=== PATIENT | female | born 1965 | race Caucasian/White ===

== ENCOUNTER 2020-06-30 11:48 | Emergency (ER) | payer BC ==
[~2020-06-30] VITALS: Ht 160 cm; Wt 70.5 kg
[~2020-06-30 11:48] MED LIST: LISI-232 PO; ZOLP10TA5 PO
[2020-06-30 12:04] VITALS: BP 178/115
== END 2020-06-30 12:28 | disposition home or self-care (01) ==
LOC: ER 11:49
DX: U07.1 COVID-19 (principal); R09.81 Nasal congestion; I10 Essential (primary) hypertension; Z79.899 Other long term (current) drug therapy
CPT/HCPCS: 99282

== ENCOUNTER 2023-06-16 05:16 | Day surgery (SDC) | payer BC ==
[2023-06-13 14:36] LABS: BASOPHILS # (AUTO) 0.1 X10'3 (0-0.2); BASOPHILS % (AUTO) 0.8 % (0-1); EOSINOPHILS # (AUTO) 0.1 X10'3 (0-0.9); EOSINOPHILS % (AUTO) 1.8 % (0-6); LYMPHOCYTES # (AUTO) 2.9 X10'3 (1.1-4.8); LYMPHOCYTES % (AUTO) 40.3 % (21-51); MEAN CORPUSCULAR HEMOGLOBIN 30.2 PG (27.0-31.0); MEAN CORPUSCULAR VOLUME 91.6 FL (78-98); MEAN PLATELET VOLUME 9.4 FL (7.4-10.4); MONOCYTES # (AUTO) 0.6 X10'3 (0-0.9); MONOCYTES % (AUTO) 7.7 % (2-12); NEUTROPHILS # (AUTO) 3.6 X10'3 (1.8-7.7); NEUTROPHILS % (AUTO) 49.4 % (42-75); PRE OP HEMATOCRIT 45.7 % (35.0-45.0); PRE OP HEMOGLOBIN 15.1 g/dL (12.0-16.0); PRE OP PLATELET COUNT 243 X10'3 (140-440); PRE OP WHITE BLOOD COUNT 7.2 10'3 (4.8-10.8); RED BLOOD COUNT 4.99 X10'6 (4.20-5.60); RED CELL DISTRIBUTION WIDTH 12.9 % (11.5-14.5)
[2023-06-13 14:46] LABS: ALBUMIN 3.8 G/DL (3.4-5.0); ALBUMIN/GLOBULIN RATIO 1.1 (1.1-1.5); ALKALINE PHOSPHATASE 90 IU/L (46-116); BLOOD UREA NITROGEN 13 MG/DL (7-18); BUN/CREATININE RATIO 16.3 (10.0-20.0); CALCIUM 9.1 MG/DL (8.5-10.1); CHLORIDE 106 MMOL/L (99-107); PRE OP ALT 40 U/L (30-65); PRE OP ANION GAP 10 (8-16); PRE OP AST 25 U/L (10-37); PRE OP BILIRUB, TOTAL 0.4 MG/DL (0.0-1.0); PRE OP GLUCOSE 84 MG/DL (70-104); PRE OP POTASSIUM 3.9 MMOL/L (3.4-5.1); PRE OP SODIUM 146 MMOL/L (135-145); TOTAL CARBON DIOXIDE 30.2 MMOL/L (24-32); TOTAL PROTEIN 7.3 G/DL (6.4-8.2); eGFR 74 ML/MIN
[2023-06-16] VITALS (28 sets, daily range): BP systolic 73–141; BP diastolic 41–89; PULSE 57–73; RESP 12–19; TEMP 97.5; O2SAT 93–99
[~2023-06-16] VITALS: Ht 160 cm; Wt 74.1 kg
[~2023-06-16 05:16] MED LIST changes: +MAGNESIUM; +VIT C; +ZINC; +[UNRECOGNIZED DRUG - OTHER]
[2023-06-16] MEDS: cefazolin 2gm/D5W 100mL 100 ML IV ONE (05:30)
[2023-06-16] MEDS: famotidine 20mg tablet PO ONE (06:37)
[2023-06-16] MEDS: ringers solution, lacted 1,000 ML IV SCH (06:37)
[2023-06-16] MEDS ORDERED: LIDOcaine 1% (10mg/ml)w/preservative inj. 20ml MDV ONE (06:42)
[2023-06-16] MEDS ORDERED: methylene blue (5mg/ml) 50mg/10ml ampul IV ONE (06:42)
[2023-06-16] MEDS ORDERED: BUPIVAcaine/PF 2.5mg/ml (0.25%) 10ml vial ONE (06:42)
[2023-06-16] MEDS ORDERED: BUPIVACAINE liposomal/PF 13.3 MG/ML vial IM ONE (07:03)
[2023-06-16] MEDS ORDERED: midazolam 1 mg/ML 2ml injection ONE (07:24)
[2023-06-16] MEDS ORDERED: fentaNYL/PF 50MCG/1 ML 2ML syringe ONE (07:24)
[2023-06-16] MEDS ORDERED: dexamethasone sod phosphate 4mg/ml inj. ONE (07:25)
[2023-06-16] MEDS ORDERED: LIDOcaine 2% (20mg/ml) 5ml vial ONE (07:25)
[2023-06-16] MEDS ORDERED: acetaminophen 1,000mg/100ml IV 100 ML IV ONE (07:25)
[2023-06-16] MEDS ORDERED: ondansetron/PF 4mg/2ml inj ONE (07:25)
[2023-06-16] MEDS ORDERED: propofol inj 20 ML IV ONE (07:25)
[2023-06-16] MEDS ORDERED: labetalol 20mg/4ml (5mg/ml) syringe IV PRN (07:30)
[2023-06-16] MEDS ORDERED: hydrALAZINE 20mg/ml inj. IV PRN (07:30)
[2023-06-16] MEDS ORDERED: ringers solution, lacted 1,000 ML IV SCH (07:30)
[2023-06-16] MEDS ORDERED: fentaNYL/PF 50MCG/1 ML 2ML syringe IV PRN (07:30)
[2023-06-16] MEDS ORDERED: morphine 2 MG/ML inj. syringe IV PRN (07:30)
[2023-06-16] MEDS ORDERED: sevoflurane 250ml liquid IH ONE (07:50)
[2023-06-16] MEDS: LIDOCAINE 1% w/preservative (10 MG/ML) inj. 10mL VIAL IJ ONE (08:27)
[2023-06-16] MEDS: BUPIVAcaine/PF 2.5mg/ml (0.25%) 10ml vial IJ ONE (08:30)
[2023-06-16] MEDS: BUPIVACAINE liposomal/PF 13.3 MG/ML vial IM ONE (08:31)
[2023-06-16] MEDS ORDERED: hydrALAZINE 20mg/ml inj. IV ONE (08:33)
[2023-06-16] MEDS: ondansetron/PF 4mg/2ml inj IV PRN (09:40)
[2023-06-16] MEDS: ringers solution, lacted 1,000 ML IV ONE (09:59)
[2023-06-16] MEDS: morphine 4 MG/ML inj SYRINge IV PRN (10:56)
[2023-06-16] MEDS: fentaNYL/PF 50MCG/1 ML 2ML syringe IV PRN (11:12)
[2023-06-16] MEDS: HYDROcodone/acetaminophen 5mg/325mg tablet PO ONE (11:30)
== END 2023-06-16 11:53 | disposition home or self-care (01) ==
LOC: PAS 05:16
PROVIDERS: ATTEND Surgery
DX: C50.411 Malignant neoplasm of upper-outer quadrant of right female breast (principal); I10 Essential (primary) hypertension; Z79.899 Other long term (current) drug therapy
CPT/HCPCS: 19301; 36415; 38525; 38900; 76098; 76998; 80053; 82948; 85025; 93005; 93306; C9290; J0131; J0360; J0690; J1100; J2250; J2270; J2405; J2704; J3010; J3490; J7030; J7120; Q9968; Z7506; Z7508; Z7512; A4215; A4618; A6258; A6446; A7000